=== PATIENT | male | born 1985 | race Two or more races ===

== ENCOUNTER 2020-06-17 11:12 | Emergency (ER) | payer OTHER ==
[~2020-06-17] VITALS: Ht 177.8 cm; Wt 101.8 kg
[2020-06-17] MEDS ORDERED: KETOROLAC 30 MG/1 ML IM ONE (12:00)
[2020-06-17 12:34] LABS: TROPONIN I < 0.015 ng/mL (0.000-0.045)
[2020-06-17] MEDS ORDERED: KETOROLAC 60 MG/2 ML ONE (12:37)
--- NOTE | 2020-06-17 13:05 | NUR ---
SPOKE WITH ERP FOR PT, NO REPEAT EKG NEEDED.
[2020-06-17 14:12] VITALS: BP 136/90
== END 2020-06-17 14:13 | disposition home or self-care (01) ==
LOC: ED 11:42
DX: R07.89 Other chest pain (principal); I44.4 Left anterior fascicular block; R94.31 Abnormal electrocardiogram [ECG] [EKG]
CPT/HCPCS: 36415; 71045; 84484; 93005; 96372; 99285; J1885

== ENCOUNTER → 2020-09-01 | Outpatient (CLI) | payer OTHER ==
[2020-09-01 07:39] LABS: ALBUMIN 3.8 g/dL (3.4-5.0); CALCIUM 9.1 mg/dL (8.5-10.1)
[2020-09-01 07:44] LABS: % IRON SATURATION 33 % (20-55); ALANINE AMINOTRANSFERASE 53 U/L (12-78); ALKALINE PHOSPHATASE 83 U/L (45-117); BILIRUBIN,TOTAL 0.4 mg/dL (0.2-1.0); CHOL/HDL RATIO 5.6; CHOLESTEROL, TOTAL 217 mg/dL (140-239); CREATININE 1.15 mg/dL (0.7-1.3); HDL CHOL % 18 % (26-37); HDL CHOLESTEROL (DIRECT) 39 mg/dL (40-60); IRON LEVEL 103 mcg/dL (65-175); LDL CHOLESTEROL,CALCULATED 110 mg/dL (54-169); LDL/HDL RATIO 2.8 (0.5-3.0); TOTAL IRON BINDING CAPACITY 309 mcg/dL (250-450); TOTAL PROTEIN 7.7 g/dL (6.4-8.2); TRIGLYCERIDES 338 mg/dL (50-200); VLDL CHOLESTEROL 68 mg/dL (0-25)
[2020-09-01 07:47] LABS: CHLORIDE 109 mmol/L (98-107)
[2020-09-01 07:48] LABS: ANION GAP 5 mmol/L (5-15)
== END | disposition home or self-care (01) ==
LOC: LAB 07:05
PROVIDERS: ATTEND Nurse Practitioner Primary Care
DX: E78.5 Hyperlipidemia, unspecified (principal); D58.2 Other hemoglobinopathies
CPT/HCPCS: 36415; 80053; 80061; 82728; 83540; 83550

== ENCOUNTER 2020-12-14 08:38 | Outpatient (CLI) | payer OTHER | END 2020-12-14 23:59 | disposition home or self-care (01) | LOC: CFH 08:38 | PROVIDERS: ATTEND Internal Medicine Cardiovascular Disease | DX: R94.31 Abnormal electrocardiogram [ECG] [EKG] (principal); R07.9 Chest pain, unspecified; I10 Essential (primary) hypertension | CPT/HCPCS: 93306 ==